=== PATIENT | male | born 1965 | race Caucasian/White ===

== ENCOUNTER 2022-08-21 02:16 | Day surgery (SDC) | payer OTHER, SELFPAY ==
[2022-08-14 09:43] VITALS: BMI 31.6
--- NOTE | 2022-08-21 08:14 | P.PNAN_ITS ---
Anes - Initial Pre Proc Eval Procedure: Operation Date: 08/21/22 10:15 Proposed Procedures p Screening Colonoscopy - Alex Win DO Date/Time: 08/21/22 08:14 Surgeon: Alex Win DO Pre Op Diagnosis: polyp of colon Patient Data Age: 56 Gender: M Height: 1.85 m Weight: 109 kg Allergies Allergy/AdvReac Type Severity Reaction Status Date / Time No Known Allergies Allergy Verified 08/21/22 08:56 Home Medications Medication Instructions Recorded Confirmed Type No Home Medications 06/09/22 08/21/22 History Patient hx anesthesia problems: none Family hx anesthesia problems: none Results Review: All pre-operative results and documents have been reviewed as part of the pre- operative evaluation. [facility] Past Medical History Medical History Asthma Obesity Smoker Surgical History Surgical History (Updated 06/09/22 @ 11:52 by Tyler Morrison DO) H/O spinal fusion 1999 Hx of tonsillectomy Social History Social History (Updated 06/09/22 @ 11:28 by Anna Sun) Smoking packs per day: 1.5 Smoking cigarettes per day: 30.0 Years smoked: 41 Smoking pack-years: 61.50 Smoking status: Current every day smoker Tobacco type: cigarettes Alcohol intake: former Substance use: never Substance use type: does not use Living arrangements: with family Spiritual care concerns: No Anes - Eval Final PreProcedure Day of Procedure 08/21/22 08:14 Patient weight: obese Heart: regular rate and rhythm Lungs: clear to auscultation and normal air movement Airway: Mallampati scale class II Neurological: alert and oriented Last oral intake: >/= 8 hours ASA classification: II Emergent: no Anesthetic plan: proceed Anesthesia type and monitoring: general GIVS Results Review: All pre-operative results and documents have been reviewed as part of the pre- operative evaluation. Informed Consent: The patient's anesthetic plan and its attendant risks and benefits were discussed with the patient/family/POA. Questions were solicited and answers provided to the satisfaction of the patient/family/POA.
[2022-08-21 08:57] VITALS: BP 159/87; PULSE 72; RESP 18; TEMP 36.3; O2SAT 98
[2022-08-21] MEDS: LACTATED RINGERS 1,000 ML 150 ML IV CONT (09:10)
--- NOTE | 2022-08-21 09:39 | PM.IMHP ---
H&P: HPI History of Present Illness Date/Time: 08/21/22 09:39 Chief Complaint: family history of colon cancer, history of polyps Narrative: this is a 56-year-old man who presents colonoscopy. His last colonoscopy was 5 years ago at an outside facility. He states that he has had many polyps in the past. He also a family history of colon cancer in his father. He denies hematochezia or melena. Patient did state that he ate solid food for breakfast yesterday before starting prep. He still feels like was adequately prepped with the laxatives. Review of Systems Review of Systems: All systems reviewed & are unremarkable except as noted in HPI and below Constitutional: Constitutional: Denies chills, Denies fever(s), Denies headache(s) and Denies weight loss Eyes: Eyes: Denies change in vision ENT: Denies dizziness, Denies headache(s), Denies neck mass and Denies throat swelling Cardiovascular: Cardiovascular: Denies chest pain, Denies lightheadedness and Denies dyspnea Respiratory: Respiratory: Denies cough, Denies dyspnea and Denies wheezing Gastrointestinal: Gastrointestinal: Denies abdominal pain, Denies change in bowel habits, Denies nausea and Denies vomiting Genitourinary: Genitourinary: Denies hematuria and Denies dysuria Musculoskeletal: Musculoskeletal: Reports as per HPI Integumentary/Breasts: Skin/Breast: Reports as per HPI Neurologic: Denies dizziness and Denies headache(s) Allergic/Immunologic: Allergic/Immunologic: Denies throat swelling and Denies wheezing [facility] Past Medical History Medical History Asthma Obesity Smoker Surgical History Surgical History (Updated 06/09/22 @ 11:52 by Tyler Morrison DO) H/O spinal fusion 1999 Hx of tonsillectomy Social History Social History (Updated 06/09/22 @ 11:28 by Anna Sun) Smoking packs per day: 1.5 Smoking cigarettes per day: 30.0 Years smoked: 41 Smoking pack-years: 61.50 Smoking status: Current every day smoker Tobacco type: cigarettes Alcohol intake: former Substance use: never Substance use type: does not use Living arrangements: with family Spiritual care concerns: No Meds Home Medications and Allergies Home Medications Medication Instructions Recorded Confirmed Type No Home Medications 06/09/22 08/21/22 History Allergies Allergy/AdvReac Type Severity Reaction Status Date / Time No Known Allergies Allergy Verified 08/21/22 08:56 Vital Signs Vital Signs - 24 hr 08/21/22 08:57 Temperature 36.3 C L Pulse Rate 72 Respiratory Rate 18 Blood Pressure 159/87 H Pulse Oximetry 98 Oxygen Delivery Room Air Exam Const: General: no acute distress and alert Orientation/consciousness: patient oriented x3 HENMT: Head: normocephalic and atraumatic Ears: hearing grossly normal bilaterally Face/Nose/Sinus: Normal nares present Mouth: Yes Normal oral and palatal mucosa present Eyes: Periorbital: periorbital findings normal Sclera: sclerae normal EOM: EOMs intact bilaterally Neck: Neck: normal visual inspection, no lymphadenopathy and trachea midline Chest: Chest palpation & inspection: normal inspection of the chest Resp: Effort & Inspection: normal respiratory effort Auscultation: clear to auscultation bilaterally Cardio: Jugular venous distension: no JVD Rate: regular rate Rhythm: regular rhythm Heart sounds: S1 normal heart sound present and S2 normal heart sound present Peripheral pulses: Peripheral pulses 2+ throughout GI: Inspection: normal to inspection GI Palp: Yes Soft to palpation, No Tenderness to palpation present (GI), No Guarding due to palpation present (GI) and No Rebound tenderness present Percussion: Yes normal to percussion Auscultation: normal bowel sounds : General: Yes no CVA tenderness Back/Spine/Pelvis: Back: no CVA tenderness Neuro: General: patient oriented x3, no focal motor deficits and CN's II-XI intact bilaterally Cognition (Mike
[2022-08-21 10:16] VITALS: BP 127/99; PULSE 89; RESP 25; O2SAT 98
[2022-08-21 10:26] VITALS: BP 158/78; PULSE 88; RESP 20; O2SAT 98
[2022-08-21 10:36] VITALS: BP 143/94; PULSE 70; RESP 20; O2SAT 100
== END 2022-08-21 10:50 | disposition home or self-care (01) ==
PROVIDERS: PCP Family Medicine; Visit Provider Surgery
PROC: 0DJD8ZZ Inspection of Lower Intestinal Tract, Via Natural or Artificial Opening Endoscopic (ICD-10-PCS; CPT 45378; principal; 2022-08-21 10:15)
DX: Z12.11 Encounter for screening for malignant neoplasm of colon (principal); K57.30 Diverticulosis of large intestine without perforation or abscess without bleeding; K63.5 Polyp of colon; Z80.0 Family history of malignant neoplasm of digestive organs; F17.210 Nicotine dependence, cigarettes, uncomplicated; E66.9 Obesity, unspecified; Z68.32 Body mass index [BMI] 32.0-32.9, adult; Z98.1 Arthrodesis status
CPT/HCPCS: 45380; 88305; J2704; J7120